=== PATIENT | female | born 1985 | race Caucasian/White ===

== ENCOUNTER 2023-07-13 13:03 | Observation (INO) | payer OTHER, SELFPAY ==
[2023-07-13] VITALS (44 sets, daily range): BP systolic 118–176; BP diastolic 76–108; PULSE 54–112; RESP 8–66; TEMP 36.8–37.2; O2SAT 87–100; BMI 36.3
--- NOTE | 2023-07-13 13:15 | ECG_ITS ---
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
--- NOTE | 2023-07-13 13:16 | CT_ITS ---
The [address] [address] Patient Name: MARK CALDERON MRN: [id number] date: 1985 Sex: F Assigned Patient Location: ER Current Patient Location: ER Accession/Order Number: [id number] Exam Date: 07/13/2023 13:50 Report Date: 07/13/2023 14:15 At the request of: GILLIAN MURO Procedure: CT head/brain wo con CT head/brain wo con, 07/13/2023 1:50 PM EDT INDICATION: Altered mental status COMPARISON: Noncontrast CT of the head 03/31/2023 TECHNIQUE: Axial CT images of the brain from skull base to vertex, including portions of the face and sinuses, were obtained without contrast. Multiplanar reformatted images were generated and reviewed as needed. FINDINGS: No intracranial mass, hydrocephalus, midline shift or acute hemorrhage. No extra-axial collection. Glover-white matter differentiation is preserved. The paranasal sinuses and mastoid air cells are clear. Orbits are within normal limits. No acute skull fracture. CT/CT head/brain wo con IMPRESSION: No acute intracranial abnormality. Electronically authenticated by: AVTAR GARCIA Date: 07/13/2023 14:15
--- NOTE | 2023-07-13 13:31 | XR_ITS ---
The [address] [address] Patient Name: MARK CALDERON MRN: [id number] date: 1985 Sex: F Assigned Patient Location: ER Current Patient Location: ER Accession/Order Number: [id number] Exam Date: 07/13/2023 13:50 Report Date: 07/13/2023 14:15 At the request of: GILLIAN MURO Procedure: XR chest 1V EXAM: XR chest 1V at 1359 hours HISTORY: Altered mental status COMPARISON: 06/05/2022 TECHNIQUE: AP supine portable chest x-ray FINDINGS: The heart is not enlarged and the vasculature is not distended. No acute infiltrate, effusion or pneumothorax is identified. Slight cephalization of the pulmonary vasculature is presumably related to the patient's supine position. The osseous structures are grossly intact. XR/XR chest 1V IMPRESSION: No acute infiltrate or evidence of cardiac decompensation. Given the differences in patient positioning, the overall appearance is essentially unchanged. Electronically authenticated by: MARCO BLOCK Date: 07/13/2023 14:15
--- NOTE | 2023-07-13 13:31 | ED.OVERDOSE1 ---
HPI - Overdose General Chief Complaint: Overdose Stated Complaint: OVERDOSE Time Seen by Provider: 07/13/23 13:15 Source: other Source comment: EMS Mode of arrival: ambulance Limitations: altered mental status History of Present Illness HPI Narrative: patient is a 37-year-old female brought in by ambulance for altered mental status and suspected overdose. Patient was reported by her to be altered and not acting right since 7 AM this morning. She takes multiple medication at home including Cymbalta, baclofen and gabapentin. She also buys Seroquel off the street and uses this recreationally as well as Kratom for opiate effects. Unknown at this time if the overdose may have been intentional as the patient is altered, she repeats her name over and over again and is resting on the exam cart alert but does not communicate otherwise. She is moving her upper extremities and rubbing her arms, she states it hurts . Related Data Home Medications Medication Instructions Recorded Confirmed baclofen 20 mg tablet 20 mg PO Q12H 07/13/23 07/13/23 clonidine HCl 0.1 mg tablet 0.1 mg PO DAILY 07/13/23 07/13/23 gabapentin 400 mg capsule 400 mg PO Q12H 07/13/23 07/13/23 galcanezumab-gnlm 120 mg/mL 120 mg subcut 07/13/23 subcutaneous pen injector (Emgality Pen) levothyroxine 137 mcg tablet 137 mcg PO DAILY 07/13/23 07/13/23 Allergies Allergy/AdvReac Type Severity Reaction Status Date / Time No Known Drug Allergies Allergy Verified 07/13/23 13:45 Review of Systems ROS Status of ROS unobtainable due to medical condition and unobtainable due to mental status PFSH PFS Social History Smoking status: Smoker, status unknown Exam Narrative Exam Narrative: Gen.: Awake, alert, in no distress Head: Normocephalic, atraumatic ENT: Moist mucous membranes; no evidence of head or neck injury Respiratory: No respiratory distress, lungs clear bilaterally Cardio: Regular rate and rhythm Gastrointestinal: Abdomen is soft, nondistended and nontender to palpation Extremities: Moves extremities equally, no injuries noted Psych: altered, unable to answer questions but not actively agitated Neuro: confused but moves all extremities, able to follow some commands and answer some questions by nodding and shaking her head; repeats her first name Skin: Warm, dry, intact Constitutional Vital Signs, click to edit/add: Last Vital Signs Temp 98.3 F 07/13/23 19:07 Pulse 78 07/13/23 19:07 Resp 16 07/13/23 19:07 BP 135/85 07/13/23 19:07 Pulse Ox 96 07/13/23 19:30 O2 Del Method Room Air 07/13/23 19:30 Course Vital Signs Vital signs: Vital Signs Blood Pressure 155/99 H 07/13/23 13:04 Temperature 98.3 F 07/13/23 19:07 Pulse Rate 78 07/13/23 19:07 Respiratory Rate 16 07/13/23 19:07 Blood Pressure 135/85 07/13/23 19:07 Pulse Oximetry 96 07/13/23 19:30 Oxygen Delivery Method Room Air 07/13/23 19:30 MDM - Overdose MDM Narrative Medical decision making narrative: IV was established on arrival, IV fluids were started and poison control was contacted @ 1327, standard toxicology workup was recommended and poison control recommended using benzodiazepines for agitation. CT of the brain, chest x-ray and lab studies do not show any obvious acute abnormalities. We attempted straight catheterization for the patient but there was no urine in her bladder and she was given 2 L of IV fluids. She has no fevers, tachycardia in the Emergency Room. She is not unstable. She continues to be altered and we suspect she may be hallucinating. I discussed this with the hospitalist, Dr. Patel. At this time we are not able to medically clear the patient for psychiatric evaluation as she is significantly altered. A pink slip was filled out for the patient at 1700 p.m. as at this time the patient is not able to make appropriate medical decisions for herself and there is no family at bedside to take responsibility for her. We will admit for altered mental status and suspected drug overdose/polypharmacy to ICU for further evaluation and treatment. Medical Records Attestation: I reviewed the patient's medical records. Lab Data Attestation: I reviewed the patient's lab results. Labs: Lab Results 07/13/23 07/13/23 Range/Units 13:30 17:10 WBC 15.8 H (4.0-11.0) 10^3/uL RBC 4.65 (4.20-5.40) 10^6/uL Hgb 13.3 (12.0-16.0) g/dL Hct 41.2 (36.0-48.0) % MCV 88.6 (81.0-99.0) fL MCH 28.6 (26.7-34.0) pg MCHC 32.3 (29.9-35.2) g/dL RDW 15.3 H (11.0-15.0) % Plt Count 411 (150-450) 10^3/uL MPV 10.4 (9.5-13.5) fL Neut % (Auto) 78.4 H (43.0-75.0) % Lymph % (Auto) 12.5 L (20.5-60.0) % [place] % (Auto) 7.2 (1.7-12.0) % Eos % (Auto) 0.9 (0.9-7.0) % Baso % (Auto) 0.4 (0.2-2.0) % Neut # (Auto) 12.4 H (1.4-6.5) 10^3/uL Lymph # (Auto) 2.0 (1.2-3.8) 10^3/uL [place] # (Auto) 1.1 H (0.3-0.8) 10^3/uL Eos # (Auto) 0.1 (0.0-0.7) 10^3/uL Baso # (Auto) 0.1 (0.0-0.1) 10^3/uL Abs Immat Gran (auto) 0.09 H (0.00-0.03) 10^3/uL Imm/Tot Granulo (auto) 0.6 H (0.0-0.5) % PT 9.8 (9.0-11.6) sec INR <0.93 VBG pH 7.444 H (7.330-7.430) VBG pCO2 38.8 L (40.0-52.0) mmHg Sodium 142 (136-145) mmol/L Potassium 3.6 (3.5-5.1) mmol/L Chloride 108 H (98-107) mmol/L Carbon Dioxide 28.3 (21.0-32.0) mmol/L Anion Gap 9.3 BUN 10.0 (7.0-18.0) mg/dL Creatinine 0.68 (0.55-1.02) mg/dL Est GFR ( Amer) >60 (>=60) Est GFR (Non-Af Amer) >60 (>=60) BUN/Creatinine Ratio 14.7 Glucose 118 H (74-106) mg/dL Calcium 8.5 (8.5-10.1) mg/dL Total Bilirubin 0.3 (0.2-1.0) mg/dL AST 15 (15-37) U/L ALT 55 (14-59) U/L Alkaline Phosphatase 124 H (46-116) U/L Troponin I High Sens 4.1 (4.0-51.3) pg/mL Total Protein 6.9 (6.4-8.2) g/dL Albumin 3.5 (3.4-5.0) g/dL Globulin 3.4 g/dL Albumin/Globulin Ratio 1.0 Serum HCG, Qual Negative (NEGATIVE) Urine Color Lt. yellow (YELLOW) Urine Clarity Clear (CLEAR) Urine pH 7.0 (5.0-9.0) Ur Specific [place] 1.015 (1.005-1.025) Urine Protein Negative (NEG/TRACE) mg/dL Urine Glucose (UA) Negative (NEGATIVE) mg/dL Urine Ketones Negative (NEGATIVE) mg/dL Urine Occult Blood Negative (NEGATIVE) Urine Nitrite Negative (NEGATIVE) Urine Bilirubin Negative (NEGATIVE) Urine Urobilinogen 0.2 (0.2-1.0) EU/dL Ur Leukocyte Esterase Negative (NEGATIVE) Salicylates 4.9 (<=19.9) mg/dL Urine Opiates Screen Negative (NEGATIVE) Ur Buprenorphine Scrn Negative (NEGATIVE) Ur Oxycodone Screen Negative (NEGATIVE) Urine Methadone Screen Negative (NEGATIVE) Ur Propoxyphene Screen Negative (NEGATIVE) Acetaminophen <2.0 L (10.0-30.0) ug/mL Ur Barbiturates Screen Negative (NEGATIVE) U Tricyclic Antidepress Negative (NEGATIVE) Ur Phencyclidine Scrn Negative (NEGATIVE) Ur Amphetamines Screen Negative (NEGATIVE) U Methamphetamines Scrn Negative (NEGATIVE) U Benzodiazepines Scrn Negative (NEGATIVE) Urine Cocaine Screen Negative (NEGATIVE) U Cannabinoids Screen Negative (NEGATIVE) Ethanol Quant <3 mg/dL Imaging Data Chest x-ray: Attestation: I have reviewed the pertinent imaging results. ECG Data Attestation: I personally reviewed and interpreted this ECG as follows: (normal sinus rhythm at a rate of sixty-two, no acute ST elevation or ectopy. EKG reviewed by attending physician) ECG interpretation date: 07/13/23 ECG interpretation time: 13:35 Discharge Plan Discharge Chief Complaint: Overdose Clinical Impression: Polypharmacy, Altered mental status Patient Disposition: Admitted as Observation Time of Disposition Decision: 17:11 Condition: Good Discharge Date/Time: 07/13/23 17:57
[2023-07-13 13:39] LABS: PCO2 VBG 38.8 mmHg (40.0-52.0); pH VBG 7.444 (7.330-7.430)
[2023-07-13] MEDS: 0.9 % SODIUM CHLORIDE 1,000 ML 999 ML IV (13:44)
[2023-07-13 13:58] LABS: Alanine Aminotransferase 55 U/L (14-59); Albumin Level 3.5 g/dL (3.4-5.0); Alkaline Phosphatase 124 U/L (46-116); Anion Gap 9.3; Aspartate Amino Transferase 15 U/L (15-37); BUN Creatinine Ratio 14.7; Bilirubin Total 0.3 mg/dL (0.2-1.0); Calcium 8.5 mg/dL (8.5-10.1); Carbon Dioxide 28.3 mmol/L (21.0-32.0); Chloride 108 mmol/L (98-107); Estimated GFR (African America >60 (>=60); Estimated GFR (Non-African Ame >60 (>=60); Globulin 3.4 g/dL; Glucose 118 mg/dL (74-106); Potassium 3.6 mmol/L (3.5-5.1); Salicylate 4.9 mg/dL (<=19.9); Sodium 142 mmol/L (136-145); Total Protein 6.9 g/dL (6.4-8.2); Troponin I High Sensitivity 4.1 pg/mL (4.0-51.3)
[2023-07-13 13:59] LABS: Acetaminophen <2.0 ug/mL (10.0-30.0); Ethanol <3 mg/dL
[2023-07-13 14:23] LABS: Basophils Absolute Auto 0.1 10^3/uL (0.0-0.1); Basophils Percent Auto 0.4 % (0.2-2.0); Eosinophils Absolute Auto 0.1 10^3/uL (0.0-0.7); Eosinophils Percent Auto 0.9 % (0.9-7.0); Hematocrit 41.2 % (36.0-48.0); Hemoglobin 13.3 g/dL (12.0-16.0); Immature Granulocytes Abs Auto 0.09 10^3/uL (0.00-0.03); Immature Granulocytes Pct Auto 0.6 % (0.0-0.5); Lymphocytes Percent Auto 12.5 % (20.5-60.0); Mean Corpuscular HGB Conc 32.3 g/dL (29.9-35.2); Mean Corpuscular Hemoglobin 28.6 pg (26.7-34.0); Mean Corpuscular Volume 88.6 fL (81.0-99.0); Mean Platelet Volume 10.4 fL (9.5-13.5); Monocytes Absolute Auto 1.1 10^3/uL (0.3-0.8); Monocytes Percent Auto 7.2 % (1.7-12.0); Neutrophils Absolute Auto 12.4 10^3/uL (1.4-6.5); Neutrophils Percent Auto 78.4 % (43.0-75.0); Platelet Count 411 10^3/uL (150-450); Red Blood Count 4.65 10^6/uL (4.20-5.40); Red Cell Distribution Width 15.3 % (11.0-15.0); White Blood Count 15.8 10^3/uL (4.0-11.0)
[2023-07-13 14:25] LABS: HCG Qualitative NEGATIVE (NEGATIVE)
[2023-07-13 14:39] LABS: Prothrombin Time 9.8 sec (9.0-11.6)
[2023-07-13 14:54] LABS: INR <0.93
[2023-07-13] MEDS: 0.9 % SODIUM CHLORIDE 1,000 ML 1000 ML IV (15:44)
[2023-07-13] MEDS: LORAZEPAM 2 MG/ML 1 ML VIAL 1 MG IV ×3 (16:56→23:49)
[2023-07-13 17:21] LABS: Bilirubin Urine NEGATIVE (NEGATIVE); Blood Urine NEGATIVE (NEGATIVE); Clarity Urine CLEAR (CLEAR); Color Urine LT. YELLOW (YELLOW); Glucose Urine UA NEGATIVE (NEGATIVE); Ketones Urine NEGATIVE (NEGATIVE); Leukocyte Esterase Urine NEGATIVE (NEGATIVE); Nitrite Urine NEGATIVE (NEGATIVE); Protein Urine NEGATIVE (NEG/TRACE); Specific Gravity Urine 1.015 (1.005-1.025); Urobilinogen Urine 0.2 EU/dL (0.2-1.0)
[2023-07-13 17:22] LABS: Urine Microscopic Indicated NO
[2023-07-13 17:36] LABS: Amphetamine Screen Urine NEGATIVE (NEGATIVE); Barbiturates Screen Urine NEGATIVE (NEGATIVE); Benzodiazepines Screen Urine NEGATIVE (NEGATIVE); Buprenorphine Screen Urine NEGATIVE (NEGATIVE); Cannabinoid Screen Urine NEGATIVE (NEGATIVE); Cocaine Screen Urine NEGATIVE (NEGATIVE); Methadone Screen Urine NEGATIVE (NEGATIVE); Methamphetamines Screen Urine NEGATIVE (NEGATIVE); Opiate Screen Urine NEGATIVE (NEGATIVE); Oxycodone Screen Urine NEGATIVE (NEGATIVE); Phencyclidine Screen Urine NEGATIVE (NEGATIVE); Tricyclic Antidepressant Urine NEGATIVE (NEGATIVE)
--- NOTE | 2023-07-13 18:16 | PC.NURSE ---
Pt drowsy, unable to answer questions appropriately.
[2023-07-13] MEDS: LACTATED RINGER'S SOLUTION 1,000 ML 125 ML IV (18:20)
--- NOTE | 2023-07-13 18:25 | PC.NURSE ---
1800 admitted to icu. unable to orient to room d/t mental state. lethargic, briefly rambles random words and numbers. seizure pads applied per order. no distress or apparent pain noted at this time. call light placed within reach. room air. bedside report report received from er nurse. moves all extremities but not alert enough to follow commands for neuro assessment
--- NOTE | 2023-07-13 18:41 | PC.NURSE ---
unable to complete SI risk scale d/t lethargy and confusion. does not answer questions appropriately
--- NOTE | 2023-07-13 19:13 | PC.NURSE ---
Upon initial assessment patient is lethargic but awake. Only able to state date of . Patient restless at this time and unable to follow commands.
[2023-07-13] MEDS: ENOXAPARIN SODIUM 40 MG/0.4 ML SYRINGE SUBQ (19:31)
[2023-07-13] MEDS: ONDANSETRON PF 4 MG/2 ML VIAL IV (19:31)
--- NOTE | 2023-07-13 19:41 | PC.NURSE ---
patient increasingly restless. Dr. Alejandro Mendez notified. Dr. Mendez to put in orders. Patient also states complaints of nausea at this time along with abdominal cramps. Patient denies needing to use bathroom, or the feeling of having to have a BM or pass flatus. Patient medicated for nausea at this time per PRN physician medication orders. Lovenox injection given in patients lower left abdomen at this time. Patient states no further needs at this time.
--- NOTE | 2023-07-13 20:04 | PC.NURSE ---
Patient resting peacefully at this time in room. Positioned on right side. drug abuse worker maintained.
--- NOTE | 2023-07-13 21:09 | PC.NURSE ---
Patient awake and increasingly agitated at this time. Patient states auditory and visual hallucinations as well as appears diaphoretic and flushed. Medicated per physicians order.
[2023-07-14] VITALS (68 sets, daily range): BP systolic 128–160; BP diastolic 85–101; PULSE 59–144; RESP 5–65; TEMP 36.7–37; O2SAT 78–100; BMI 43.8
--- NOTE | 2023-07-14 00:04 | PC.NURSE ---
Patient awake and restless. Patient diaphoretic in appearance and flushed. Patient able to tell name and birthdate, but not oriented to situation, place, or year. Patient reoriented at this time. patient denies the need for toileting at this time. Queen is patent and emptied at this time. Patient medicated per physicians medications orders at this time.
[2023-07-14] MEDS: LACTATED RINGER'S SOLUTION 1,000 ML 125 ML IV (01:59)
[2023-07-14] MEDS: LORAZEPAM 2 MG/ML 1 ML VIAL 1 MG IV ×3 (02:32→07:11)
[2023-07-14] MEDS: ONDANSETRON PF 4 MG/2 ML VIAL IV (02:32)
[2023-07-14 05:09] LABS: Basophils Absolute Auto 0.1 10^3/uL (0.0-0.1); Basophils Percent Auto 0.6 % (0.2-2.0); Eosinophils Absolute Auto 0.1 10^3/uL (0.0-0.7); Eosinophils Percent Auto 1.4 % (0.9-7.0); Hematocrit 38.3 % (36.0-48.0); Hemoglobin 12.5 g/dL (12.0-16.0); Immature Granulocytes Abs Auto 0.03 10^3/uL (0.00-0.03); Immature Granulocytes Pct Auto 0.3 % (0.0-0.5); Lymphocytes Absolute Auto 2.1 10^3/uL (1.2-3.8); Lymphocytes Percent Auto 22.3 % (20.5-60.0); Mean Corpuscular HGB Conc 32.6 g/dL (29.9-35.2); Mean Corpuscular Hemoglobin 28.8 pg (26.7-34.0); Mean Corpuscular Volume 88.2 fL (81.0-99.0); Mean Platelet Volume 10.4 fL (9.5-13.5); Monocytes Absolute Auto 0.8 10^3/uL (0.3-0.8); Monocytes Percent Auto 8.1 % (1.7-12.0); Neutrophils Absolute Auto 6.4 10^3/uL (1.4-6.5); Neutrophils Percent Auto 67.3 % (43.0-75.0); Platelet Count 374 10^3/uL (150-450); Red Blood Count 4.34 10^6/uL (4.20-5.40); White Blood Count 9.4 10^3/uL (4.0-11.0)
[2023-07-14 05:50] LABS: Alanine Aminotransferase 43 U/L (14-59); Alkaline Phosphatase 98 U/L (46-116); Anion Gap 9.2; Aspartate Amino Transferase 10 U/L (15-37); Bilirubin Total 0.3 mg/dL (0.2-1.0); Calcium 8.1 mg/dL (8.5-10.1); Carbon Dioxide 26.6 mmol/L (21.0-32.0); Chloride 106 mmol/L (98-107); Estimated GFR (African America >60 (>=60); Estimated GFR (Non-African Ame >60 (>=60); Globulin 3.1 g/dL; Glucose 108 mg/dL (74-106); Potassium 3.8 mmol/L (3.5-5.1); Sodium 138 mmol/L (136-145); Total Protein 6.1 g/dL (6.4-8.2)
--- NOTE | 2023-07-14 08:28 | P.HP_ITS ---
H&P: HPI History of Present Illness Chief complaint: OVERDOSE, ALTERED MENTAL STATUS, SUSPECTED OVERDOS Narrative: the patient is a 37-year-old female who was brought to the Emergency Room yesterday evening for altered mental status and suspected overdose. Patient was reported per the Emergency Room no, by her to be altered and not acting like herself since around 7 AM yesterday. She they have taken several medications including Cymbalta baclofen and gabapentin. also stated in the Emergency Room that she takes Seroquel of which she buys off the street as well as cradle for opiate effects. She denies having any intention of hurting herself. She states that her home life hasn't been the greatest and she is unhappy in her marriage. This morning on exam she is alert and oriented ?3 she denies any issues or complaints. She also denies that this was an intentional overdose. She denies any alcohol or illicit drug use, she is a known tobacco abuser. She says the only medication she notes she took was baclofen what of which she is prescribed. She is interested in getting numbers for outpatient counseling but she has no intention of hurting herself or others. Review of Systems ROS Narrative ROS: a complete review of systems were reviewed with patient and are positive as below or listed in History of Chief Complaint. General: no fever, chills, night sweats Head: no headache, trauma, visual changes, nausea or vomiting Skin: no reported rashes, itching or sores Eyes: no blurriness of vision Ears: no reported hearing loss, vertigo, earache, or tinnitus Throat: no sore throat, hoarseness, swelling of neck, or tongue pain Heart: no chest pain Lungs: no shortness of breath or cough GI: no diarrhea or vomiting/nausea Urinary: no urinary urgency, frequency or pain Neuro: no numbness or tingling HEM: no bleeding issues or bruising ENDO: no thyroid problems Psych: no anxiety or depression PFSH PFSH Social History Smoking status: Smoker, status unknown Meds Home Medications and Allergies Home Medications Medication Instructions Recorded Confirmed Type baclofen 20 mg tablet 20 mg PO Q12H 07/13/23 07/13/23 History clonidine HCl 0.1 mg tablet 0.2 mg PO Q12H 07/13/23 07/14/23 History gabapentin 400 mg capsule 800 mg PO TID 07/13/23 07/14/23 History galcanezumab-gnlm 120 mg/mL 120 mg subcut .WEEKLY 07/13/23 07/14/23 History subcutaneous pen injector (Emgality Pen) levothyroxine 137 mcg tablet 137 mcg PO DAILY 07/13/23 07/13/23 History Allergies Allergy/AdvReac Type Severity Reaction Status Date / Time No Known Drug Allergies Allergy Verified 07/13/23 13:45 Exam Narrative Exam Narrative: General: Patient is alert, and oriented to person, place and time with normal affect, proper hygiene Skin: no visible rashes, or ulcers Head: atraumatic, acephalic Eyes: PERRLA, no nystagmus present, conjunctiva clear, no scleral icterus Ears: normal Tympanic Membrane, normal gross auditory acuity Nose: symmetric, no discharge, no maxillary or frontal sinus tenderness Mouth/Throat: no erythema, exudate, or tonsillar enlargement, normal dentition Neck: no masses palpated, normal thyroid, no JVD or audible carotid bruits Heart: Normal rate and rhythm, no murmurs/rubs/gallops Lungs: no audible wheezes, crackles and normal breath sounds all lung pruitt Abdomen: Normal audible bowel sounds, no distension, No palpable masses, no organomegaly, no rebound/guarding/ or rigidity Musculoskeletal: muscle atrophy noted, ROM is limited due to being in hospital bed, no swelling bilateral lower extremities Vascular: Normal carotid, radial, femoral, posterior tibial, and dorsalis pedis pulses Lymph: no supraclavicular, axillary, or anterior/posterior cervical adenopathy Neuro: CN II-X grossly intact, normal sensation upper and lower extremities Constitutional Vital Signs, click to edit/add: Last Vital Signs Temp 98.6 F 07/14/23 07:00 Pulse 73 07/14/23 07:06 Resp 11 L 07/14/23 07:06 BP 140/85 07/14/23 07:06 Pulse Ox 98 07/14/23 07:20 O2 Del Method Room Air 07/14/23 07:00 Results Labs Labs: Short CBC 07/13/23 07/14/23 Range/Units 13:30 04:04 WBC 15.8 H 9.4 (4.0-11.0) 10^3/uL Hgb 13.3 12.5 (12.0-16.0) g/dL Hct 41.2 38.3 (36.0-48.0) % Plt Count 411 374 (150-450) 10^3/uL BMP 07/13/23 07/14/23 13:30 04:04 Sodium 142 138 Potassium 3.6 3.8 Chloride 108 H 106 Carbon Dioxide 28.3 26.6 BUN 10.0 6.0 L Creatinine 0.68 0.67 Glucose 118 H 108 H Calcium 8.5 8.1 L Liver Function 07/13/23 07/14/23 Range/Units 13:30 04:04 Total Bilirubin 0.3 0.3 (0.2-1.0) mg/dL AST 15 10 L (15-37) U/L ALT 55 43 (14-59) U/L Alkaline Phosphatase 124 H 98 (46-116) U/L Albumin 3.5 3.0 L (3.4-5.0) g/dL Urine 07/13/23 Range/Units 17:10 Urine Color Lt. yellow (YELLOW) Urine Clarity Clear (CLEAR) Urine pH 7.0 (5.0-9.0) Ur Specific [place] 1.015 (1.005-1.025) Urine Protein Negative (NEG/TRACE) mg/dL Urine Glucose (UA) Negative (NEGATIVE) mg/dL ABG ABG results: 07/13/23 13:30 VBG pH 7.444 H VBG pCO2 38.8 L Assessment and Plan Assessment and Plan (1) Polypharmacy: (2) Altered mental status: (3) Tobacco abuse: Plan initial findings of lab work, radiographic studies have all been unremarkable. Patient's toxicology screen showed no illegal activity. Patient was monitored in the ICU under seizure precautions, CIWA scores, was provided ATIVAN or Narco if necessary. Probable discharge this afternoon. Patient is a full code Lovenox for deep vein thrombosis prophylaxis She was in observation status
--- NOTE | 2023-07-14 08:34 | PC.NURSE ---
[place] Bedside Swallow evaluation performed. Patient alert and oriented x3. Patient swallowed water appropriately, no signs of coughing or aspiration. Will continue to monitor patient.
--- NOTE | 2023-07-14 10:08 | SWNOTE1 ---
SW met with pt to discuss overdose at home. SW and pt spoke about pt overdosing on her medications. SW did ask pt if it was intentional, at first pt did state no. Pt did admit that she was having just a bad day, but again stated it was not intentional. Pt does not recall much of the incident. Pt lives at home with her of 6 years. SW did ask pt if he was a good support for her. Pt did start crying and stated it is complicated. SW attempted to talk with pt more about it, but pt was not open to this at this time. SW did ask pt if she felt safe at home with and she stated yes. SW did ask if he hurt her in any way, and pt stated no. SW asked pt if she had any intentions of harming herself or felt suicidal? Pt stated no. Pt did voice that she was just embarrassed that she ended up here for this. SW reassured pt not to be embarrassed and to reach out for help if she is feeling down/depressed in any way. MARCK did ask pt if she was interested in going to any inpt facilities to assist her, and she stated no not at this time only, wants out-patient resources. SW did provide pt with out-patient counseling/therapy. MARCK let her know [facility] in [place] takes walk-ins until 3:00pm. MARCK again asked pt if she felt safe returning home and she stated yes. MARCK advised pt to reach out to some of the out-patient counseling/rehab places that MARCK gave her and encouraged her to go. Pt voiced understanding. MARCK also advised to call MARCK if any questions or pt needs help in any way connecting to other resources.
--- NOTE | 2023-07-14 10:36 | CM.NOTE ---
Rounds made with vitaly Gay to discharge to home today. Pt will need information on outpt counseling. No other discharge needs identified.
--- NOTE | 2023-07-14 11:09 | P.DS_ITS ---
DS: Providers Provider Date of admission: 07/13/23 17:59 Primary care physician: Non-Staff Physician, Admitting clinician: Anabel Patel Consults: 07/13/23 Consult to Dietitian Routine Reason For Exam: per admission Reason for consultation: per admission Attending physician on discharge: Anabel Patel DS: Diagnosis Discharge Diagnosis (1) Polypharmacy: (2) Altered mental status: (3) Tobacco abuse: DS: Summary Hospital Course Hospital Course: patient is alert and oriented this morning ?3, no intention of hurting herself with overdose yesterday. She minutes only taking baclofen, I discussed with her holding baclofen until she sees her primary care provider could potentially change this as it did not agree with her. Urine drug screen and no illicit activity. Patient was monitored overnight, no events on telemetry, normal labs and radiologic studies. Patient is open to trying outpatient counseling for her depression and she will also discuss this with her primary care provider. Patient is not a threat to herself or others, is back to her baseline and will be discharged home later today in stable condition. Status at Discharge Functional status at discharge: independent ambulation Overall status at discharge: patient is back to baseline Time Spent with Patient Time attestation: Total time spent providing and/or coordinating discharge services: Time spent: less than 30 minutes Exam Narrative Exam Narrative: General: Patient is alert, and oriented to person, place and time with normal affect, proper hygiene Skin: no visible rashes, or ulcers Head: atraumatic, acephalic Eyes: PERRLA, no nystagmus present, conjunctiva clear, no scleral icterus Ears: normal Tympanic Membrane, normal gross auditory acuity Nose: symmetric, no discharge, no maxillary or frontal sinus tenderness Mouth/Throat: no erythema, exudate, or tonsillar enlargement, normal dentition Neck: no masses palpated, normal thyroid, no JVD or audible carotid bruits Heart: Normal rate and rhythm, no murmurs/rubs/gallops Lungs: no audible wheezes, crackles and normal breath sounds all lung pruitt Abdomen: Normal audible bowel sounds, no distension, No palpable masses, no organomegaly, no rebound/guarding/ or rigidity Musculoskeletal: muscle atrophy noted, ROM is limited due to being in hospital bed, no swelling bilateral lower extremities Vascular: Normal carotid, radial, femoral, posterior tibial, and dorsalis pedis pulses Lymph: no supraclavicular, axillary, or anterior/posterior cervical adenopathy Neuro: CN II-X grossly intact, normal sensation upper and lower extremities Constitutional Vital Signs, click to edit/add: Last Vital Signs Temp 98.6 F 07/14/23 07:00 Pulse 72 07/14/23 08:00 Resp 11 L 07/14/23 07:06 BP 140/85 07/14/23 07:06 Pulse Ox 98 07/14/23 07:20 O2 Del Method Room Air 07/14/23 07:00 DS: Data Data Completed and Pending Labs on day of discharge: Labs from last 24 hours 07/14/23 07/13/23 07/13/23 04:04 17:10 13:30 WBC 9.4 15.8 H RBC 4.34 4.65 Hgb 12.5 13.3 Hct 38.3 41.2 MCV 88.2 88.6 MCH 28.8 28.6 MCHC 32.6 32.3 RDW 15.0 15.3 H Plt Count 374 411 MPV 10.4 10.4 Neut % (Auto) 67.3 78.4 H Lymph % (Auto) 22.3 12.5 L [place] % (Auto) 8.1 7.2 Eos % (Auto) 1.4 0.9 Baso % (Auto) 0.6 0.4 Neut # (Auto) 6.4 12.4 H Lymph # (Auto) 2.1 2.0 [place] # (Auto) 0.8 1.1 H Eos # (Auto) 0.1 0.1 Baso # (Auto) 0.1 0.1 Abs Immat Gran (auto) 0.03 0.09 H Imm/Tot Granulo (auto) 0.3 0.6 H PT 9.8 INR <0.93 VBG pH 7.444 H VBG pCO2 38.8 L Sodium 138 142 Potassium 3.8 3.6 Chloride 106 108 H Carbon Dioxide 26.6 28.3 Anion Gap 9.2 9.3 BUN 6.0 L 10.0 Creatinine 0.67 0.68 Est GFR ( Amer) >60 >60 Est GFR (Non-Af Amer) >60 >60 BUN/Creatinine Ratio 9.0 14.7 Glucose 108 H 118 H Calcium 8.1 L 8.5 Total Bilirubin 0.3 0.3 AST 10 L 15 ALT 43 55 Alkaline Phosphatase 98 124 H Troponin I High Sens 4.1 Total Protein 6.1 L 6.9 Albumin 3.0 L 3.5 Globulin 3.1 3.4 Albumin/Globulin Ratio 1.0 1.0 TSH 0.040 L Serum HCG, Qual Negative Urine Color Lt. yellow Urine Clarity Clear Urine pH 7.0 Ur Specific [place] 1.015 Urine Protein Negative Urine Glucose (UA) Negative Urine Ketones Negative Urine Occult Blood Negative Urine Nitrite Negative Urine Bilirubin Negative Urine Urobilinogen 0.2 Ur Leukocyte Esterase Negative Salicylates 4.9 Urine Opiates Screen Negative Ur Buprenorphine Scrn Negative Ur Oxycodone Screen Negative Urine Methadone Screen Negative Ur Propoxyphene Screen Negative Acetaminophen <2.0 L Ur Barbiturates Screen Negative U Tricyclic Antidepress Negative Ur Phencyclidine Scrn Negative Ur Amphetamines Screen Negative U Methamphetamines Scrn Negative U Benzodiazepines Scrn Negative Urine Cocaine Screen Negative U Cannabinoids Screen Negative Ethanol Quant <3 Discharge Plan Discharge Disposition: Home, Self-Care Condition: Good Discharge Medications: Continued clonidine HCl 0.1 mg tablet 0.2 mg PO Q12H gabapentin 400 mg capsule 800 mg PO TID Emgality Pen 120 mg/mL pen injector 120 mg SUBCUT .WEEKLY levothyroxine 137 mcg tablet 137 mcg PO DAILY Held baclofen 20 mg tablet 20 mg PO Q12H Hold Instructions: Resume on 07/21/23. would hold medication for 1 week, or until follow up with pcp Activity: increase activity as tolerated and resume usual activities as tole rated Diet: advance to your usual diet Forms: Portal Instructions Follow Up Appointments: July at 2 pm [facility] [phone]; Encourage outpatient counseling services as well.
--- NOTE | 2023-07-14 11:48 | SWNOTE1 ---
Billing sent out an email and pt's insurance ended on 07/13/23. SW spoke with pt and she was aware of this and is supposed to be on her 's insurance. SW let pt know when comes to get her we will need copy of insurance card, SW let nursing know as well.
--- NOTE | 2023-07-14 11:49 | PC.NURSE ---
[facility] [phone] phoned for update regarding patient status. Information given. HIPAA Disclosure form completed.
--- NOTE | 2023-07-18 10:33 | CM.DCFOLLOWU ---
First discharge follow up phone call attempted today with no answer.
== END 2023-07-14 11:55 | disposition home or self-care (01) ==
LOC: ER 17:11 → ICU 18:02
PROVIDERS: Physician Assistant; Admitting Provider Family Medicine; Emergency Provider Emergency Medicine; Visit Provider Family Medicine
DX: T42.8X1A Poisoning by antiparkinsonism drugs and other central muscle-tone depressants, accidental (unintentional), initial encounter (principal); R41.82 Altered mental status, unspecified; F17.210 Nicotine dependence, cigarettes, uncomplicated; Z79.899 Other long term (current) drug therapy; Z79.890 Hormone replacement therapy
CPT/HCPCS: 36415; 51702; 70450; 71045; 80053; 80179; 80307; 80320; 80329; 81001; 81003; 82800; 83605; 84443; 84484; 84703; 85025; 85610; 93005; 94761; 96361; 96372; 96374; 96375; 96376; 99285; G0378